=== PATIENT | male | born 1965 | race Caucasian/White ===

== ENCOUNTER 2016-11-02 10:30 | Emergency (ER) | payer BC, MEDICAID ==
[2016-11-02 10:51] VITALS: BP 140/82
--- NOTE | 2016-11-02 11:40 | EDM.PDOC ---
ED HPI Trauma - General Chief Complaint: Lower Extremity Injury/Pain Stated Complaint: KNEE BUCKELED WHILE WALKING DOWN STAIRS Time Seen by Provider: 11/02/16 11:20 Source: Reports: Patient, Old records, RN notes reviewed History Limitations: Reports: No limitations - History of Present Illness INITIAL COMMENTS - FREE TEXT/NARRATIVE: 51-year-old gentleman presents emergency department today complaint of left knee pain, he was evaluated by his primary care provider a couple of days ago for a similar complaint was set up for evaluation by orthopedics in 6 days unfortunately last night his knee gave out on him again causing an increase in pain he is using crutches but his main issue today is pain control Allergies/ADRs: Allergies ketorolac tromethamine [From Toradol] Allergy (Severe, Verified 02/03/14 11:17) Swelling codeine Allergy (Intermediate, Verified 02/03/14 11:16) Hives Home Medications: Ambulatory Orders Omeprazole 20 mg PO DAILY 02/03/14 [Confirmed 11/02/16] ALPRAZolam [Xanax] 1 mg PO BID PRN 11/02/16 [Confirmed 11/02/16] Prazosin [Minpress] 1 mg PO BEDTIME 11/02/16 [Confirmed 11/02/16] QUEtiapine [SEROquel] 25 - 50 mg PO BID PRN 11/02/16 [Confirmed 11/02/16] QUEtiapine [SEROquel] 100 mg PO BEDTIME 11/02/16 [Confirmed 11/02/16] Sertraline HCl 100 mg PO DAILY 11/02/16 [Confirmed 11/02/16] Past Medical History - Past Surgical History Musculoskeletal Surgical History: Reports: Arthroscopic knee Social & Family History - Tobacco Use Smoking Status *Q: Current Every Day Smoker Years of Tobacco use: 40 Packs/Tins Daily: 1 Second Hand Smoke Exposure: Yes - Caffeine Use Caffeine Use: Reports: Coffee - Alcohol Use Days Per Week of Alcohol Use: 0 - Recreational Drug Use Recreational Drug Use: Yes Drug Use in Last 12 Months: Yes Recreational Drug Type: Reports: Marijuana/Hashish Recreational Drug Use Frequency: Weekly Recreational Drug Last Use: 11/02/16 Review of Systems - Review of Systems Review Of Systems: See Below Constitutional: Reports: no symptoms Musculoskeletal: Reports: joint pain (Left knee) Neurological: Reports: No Symptoms Trauma Exam - Physical Exam Exam: See Below Text/Narrative:: Examination left knee I don't appreciate any edema there is no erythema he is exquisitely tender along the medial joint line will not allow me to perform a fullness or varus maneuver does not tolerate any movement of the patella no Monty's or anterior drawer test was done Exam Limited By: No limitations General Appearance: Reports: alert, WD/WN, no apparent distress Course - Vital Signs Last Recorded V/S: Last Vital Signs Temp 97.7 F 11/02/16 10:50 Pulse 84 11/02/16 10:50 Resp 16 11/02/16 10:50 BP 140/82 11/02/16 10:50 Pulse Ox 98 11/02/16 10:50 - Orders/Labs/Meds Orders: Active Orders 24 hr Category Date Time Status DME for Discharge [COMM] Per Unit Routine Oth 11/02/16 11:33 Ordered Departure - Departure Time of Disposition: 11:38 Disposition: Home, Self-Care 01 Condition: good Clinical Impression: Left knee pain Qualifiers: Chronicity: acute Qualified Code(s): M25.562 - Pain in left knee Forms: ED Department Discharge Additional Instructions: Use Percocet as needed for pain control please keep your followup appointment with orthopedics next week, call or return to the emergency department with worsening of symptoms - My Orders Last 24 Hours: My Active Orders 11/02/16 11:33 DME for Discharge [COMM] Per Unit Routine - Assessment/Plan Last 24 Hours: My Active Orders 11/02/16 11:33 DME for Discharge [COMM] Per Unit Routine Plan: Assessment Acuity = acute Site and laterality = left knee pain complicated patient with known history of surgical intervention to left knee with anterior cruciate ligament repair Etiology = secondary to twisting injury Manifestations = none Location of injury = home Lab values = none Plan Granted prescription for 20 Percocets, he is set up for orthopedics on the of this month, placed in a knee immobilizer he is already nonweightbearing with crutches Patient was in agreement with the plan all questions were answered, they were instructed to return to the emergency department or call for worsening symptoms. This note was dictated using [employer] voice recognition software please call with any questions.
== END 2016-11-02 11:45 | disposition home or self-care (01) ==
LOC: JP.ED 10:30
DX: M25.562 Pain in left knee (principal); F17.210 Nicotine dependence, cigarettes, uncomplicated; Z79.899 Other long term (current) drug therapy; Z88.5 Allergy status to narcotic agent
CPT/HCPCS: 99283

== ENCOUNTER 2017-02-03 12:33 | Emergency (ER) | payer MEDICAID ==
[2017-02-03 12:47] VITALS: BP 125/85
--- NOTE | 2017-02-03 13:01 | EDM.PDOC ---
ED HPI GENERAL MEDICAL PROBLEM - General Chief Complaint: ENT Problem Stated Complaint: BOTTOM LT TOOTH PAIN Time Seen by Provider: 02/03/17 12:43 Source of Information: Reports: Patient History Limitations: Reports: No Limitations - History of Present Illness INITIAL COMMENTS - FREE TEXT/NARRATIVE: History of present illness: [51-year-old male presenting with a toothache. He was at work side working and came in drink some ice cold water and now is having terrible unrelenting tooth pain. He has had no fevers. ] Review of systems: As per history of present illness and below otherwise all systems reviewed and negative. Past medical history: As per history of present illness and as reviewed below otherwise noncontributory. Surgical history: As per history of present illness and as reviewed below otherwise noncontributory. Social history: No reported history of drug or alcohol abuse. Family history: As per history of present illness and as reviewed below otherwise noncontributory. Physical exam: HEENT: Atraumatic, normocephalic, examination of his dentition reveals that the tooth #33 is decayed tooth space. He does have percussion tenderness and there is some swelling of the gums. Lungs: Clear to auscultation, Heart: S1S2, regular, negative for clicks, rubs, or JVD. Extremities: Atraumatic, negative for cords or calf pain. Neurovascular unremarkable. Neuro: Awake, alert, oriented. Exam nonfocal. Diagnostics: [] Therapeutics: [] Impression: [Toothache] Plan: [I'm providing him with pen VK 500 mg 1 by mouth 4 times a day for 7 days and [place] 5/325 one by mouth every 3-4 hours when necessary #20 no refills he will need to follow-up with the dentist.] Definitive disposition and diagnosis as appropriate pending reevaluation and review of above. - Related Data Allergies Allergy/AdvReac Type Severity Reaction Status Date / Time ketorolac tromethamine Allergy Severe Swelling Verified 02/03/14 11:17 [From Toradol] codeine Allergy Intermediate Hives Verified 02/03/14 11:16 Home Meds: Home Meds Omeprazole 20 mg PO DAILY 02/03/14 [History] ALPRAZolam [Xanax] 1 mg PO BID PRN 11/02/16 [History] Prazosin [Minpress] 1 mg PO BEDTIME 11/02/16 [History] QUEtiapine [SEROquel] 25 - 50 mg PO BID PRN 11/02/16 [History] QUEtiapine [SEROquel] 100 mg PO BEDTIME 11/02/16 [History] Sertraline HCl 100 mg PO DAILY 11/02/16 [History] Past Medical History - Past Surgical History Musculoskeletal Surgical History: Reports: Arthroscopic Knee Social & Family History - Tobacco Use Smoking Status *Q: Current Every Day Smoker Years of Tobacco use: 40 Packs/Tins Daily: 1 Second Hand Smoke Exposure: Yes - Caffeine Use Caffeine Use: Reports: Coffee - Alcohol Use Days Per Week of Alcohol Use: 0 - Recreational Drug Use Recreational Drug Use: Yes Drug Use in Last 12 Months: Yes Recreational Drug Type: Reports: Marijuana/Hashish Recreational Drug Use Frequency: Weekly Recreational Drug Last Use: 11/02/16 ED ROS ENT - Review of Systems Review Of Systems: ROS reveals no pertinent complaints other than HPI. ED EXAM, ENT - Physical Exam Exam: See Below Course - Vital Signs Last Recorded V/S: Last Vital Signs Temp 37.2 C 02/03/17 12:46 Pulse 121 H 02/03/17 12:46 Resp 14 02/03/17 12:46 BP 125/85 02/03/17 12:46 Pulse Ox 97 02/03/17 12:46 Departure - Departure Time of Disposition: 13:00 Disposition: Home, Self-Care 01 Condition: Good Clinical Impression: Toothache, Tooth abscess - Discharge Information Forms: ED Department Discharge Additional Instructions: Please follow-up with the dentist as soon as possible
== END 2017-02-03 13:14 | disposition home or self-care (01) ==
LOC: JP.ED 12:33
DX: K04.7 Periapical abscess without sinus (principal); K08.89 Other specified disorders of teeth and supporting structures; F17.210 Nicotine dependence, cigarettes, uncomplicated; Z79.899 Other long term (current) drug therapy; Z88.5 Allergy status to narcotic agent
CPT/HCPCS: 99283

== ENCOUNTER 2017-05-11 18:37 | Emergency (ER) | payer MEDICAID ==
[2017-05-11 19:34] VITALS: BP 132/66
[2017-05-11] MEDS ORDERED: HYDROmorphone 1 MG/ML Syringe IM ONE (19:59)
[2017-05-11] MEDS ORDERED: LORazepam 2 MG/ML MDV IM ONE (20:00)
--- NOTE | 2017-05-11 20:03 | EDM.PDOC ---
ED HPI GENERAL MEDICAL PROBLEM - General Chief Complaint: Upper Extremity Injury/Pain Stated Complaint: WASHER FELL ON THUMB Time Seen by Provider: 05/11/17 19:51 Source of Information: Reports: Patient, RN Notes Reviewed History Limitations: Reports: No Limitations - History of Present Illness INITIAL COMMENTS - FREE TEXT/NARRATIVE: 51-year-old gentleman presents emergency department today complaint of left thumb pain, he injured himself when a washer pinched the thumb he has no break in the skin he is in a moderate amount pain and he has difficulty moving his thumb secondary to pain Right Head Pain Score (Numeric/FACES): 10 - Related Data Allergies Allergy/AdvReac Type Severity Reaction Status Date / Time ketorolac tromethamine Allergy Severe Swelling Verified 02/03/17 13:10 [From Toradol] codeine Allergy Intermediate Hives Verified 02/03/17 13:10 Sulfa (Sulfonamide Allergy Swelling Verified 05/11/17 19:27 Antibiotics) tramadol Allergy Swelling Verified 05/11/17 19:28 Home Meds: Home Meds Omeprazole 20 mg PO DAILY 02/03/14 [History] ALPRAZolam [Xanax] 1 mg PO BID PRN 11/02/16 [History] Prazosin [Minpress] 1 mg PO BEDTIME 11/02/16 [History] QUEtiapine [SEROquel] 25 - 50 mg PO BID PRN 11/02/16 [History] QUEtiapine [SEROquel] 100 mg PO BEDTIME 11/02/16 [History] Sertraline HCl 100 mg PO DAILY 11/02/16 [History] Past Medical History Psychiatric History: Reports: Anxiety - Past Surgical History Musculoskeletal Surgical History: Reports: Arthroscopic Knee Social & Family History - Tobacco Use Smoking Status *Q: Light Tobacco Smoker Years of Tobacco use: 34 Packs/Tins Daily: 0.5 Used Tobacco, but Quit: No Second Hand Smoke Exposure: Yes - Caffeine Use Caffeine Use: Reports: Coffee - Alcohol Use Days Per Week of Alcohol Use: 0 - Recreational Drug Use Recreational Drug Use: No Drug Use in Last 12 Months: Yes Recreational Drug Type: Reports: Marijuana/Hashish Recreational Drug Use Frequency: Weekly Recreational Drug Last Use: 11/02/16 Review of Systems - Review of Systems Review Of Systems: See Below Musculoskeletal: Reports: Other (Finger pain) ED EXAM, GENERAL - Physical Exam Exam: See Below Free Text/Narrative:: Examination of the left hand radial pulses 2+ I don't appreciate any deformity he does have some edema over the entire thumb limited range of motion secondary to pain he has full range of motion digits 2 through 4 full range of motion of the wrist Course - Vital Signs Last Recorded V/S: Last Vital Signs Temp 98.4 F 05/11/17 19:36 Pulse 100 05/11/17 19:36 Resp 16 05/11/17 19:36 BP 132/66 05/11/17 19:36 Pulse Ox 100 05/11/17 19:36 - Orders/Labs/Meds Orders: Active Orders 24 hr Category Date Time Status Fingers Thumb Lt FA [CR] Stat Exams 05/11/17 18:48 Taken Meds: Medications Discontinued Medications Generic Name Dose Route Start Last Admin Trade Name Micheleq PRN Reason Stop Dose Admin Hydromorphone HCl 1 mg 05/11/17 19:59 05/11/17 20:09 Dilaudid IM 05/11/17 20:00 1 mg ONETIME ONE Administration Lorazepam 1 mg 05/11/17 20:00 05/11/17 20:07 Ativan IM 05/11/17 20:01 1 mg ONETIME ONE Administration - Re-Assessments/Exams Free Text/Narrative Re-Assessment/Exam: 05/11/17 20:20 After pain medications and Ativan this shaking did resolve I was able to reexamine his left left thumb full range of motion all digits 2 he was able to move his thumb significantly better radial pulse is +2 sensation was intact 05/11/17 20:21 Departure - Departure Time of Disposition: 20:22 Disposition: Home, Self-Care 01 Condition: Good Clinical Impression: Injury, thumb Qualifiers: Encounter type: initial encounter Laterality: left Qualified Code(s): S69.92XA - Unspecified injury of left wrist, hand and finger(s), initial encounter - Discharge Information Referrals: Melina Valenzuela MD [Primary Care Provider] - Forms: ED Department Discharge Additional Instructions: Continue using the splint as needed for pain control, use use Percocet for breakthrough pain, Please followup with your primary care provider in 3-5 days if not better, please call return to the emergency department with worsening of symptoms. - My Orders Last 24 Hours: My Active Orders 05/11/17 18:48 Fingers Thumb Lt FA [CR] Stat - Assessment/Plan Last 24 Hours: My Active Orders 05/11/17 18:48 Fingers Thumb Lt FA [CR] Stat Plan: Assessment Acuity = acute Site and laterality = left thumb injury Etiology = secondary to trauma Manifestations = pain Location of injury = Home Lab values = thumb x-ray I did review films myself I cannot appreciate any acute process, the official read from radiology is pending Plan He did receive good relief combination Dilaudid and Ativan discharged home with 10 Percocet 5/325 one tab by mouth 3 times a day when necessary follow-up with primary care 3-5 days for reevaluation placed in a aluminum splint with [place] wrap Patient was in agreement with the plan all questions were answered, they were instructed to return to the emergency department or call for worsening symptoms. This note was dictated using [employer] voice recognition software please call with any questions.
--- NOTE | 2017-05-14 08:40 | CR ---
Fingers Thumb Lt FA HISTORY: pain, trauma FINDINGS: No acute fracture or dislocation is identified. Bony architecture and joint spaces are preserved. S oft tissues are unremarkable. IMPRESSION: No acute right thumb abnormality identified.
== END 2017-05-11 20:42 | disposition home or self-care (01) ==
LOC: JP.ED 18:37
DX: S69.91XA Unspecified injury of right wrist, hand and finger(s), initial encounter (principal); F17.210 Nicotine dependence, cigarettes, uncomplicated; W20.8XXA Other cause of strike by thrown, projected or falling object, initial encounter
CPT/HCPCS: 73140; 96372; 99283; J1170; J2060

== ENCOUNTER 2017-07-06 11:57 | Emergency (ER) | payer MEDICAID ==
[2017-07-06 12:17] VITALS: BP 155/93
[2017-07-06] MEDS ORDERED: Ketorolac 60 MG/2 ML SDV IM ONE (12:48)
[2017-07-06] MEDS ORDERED: Acetaminophen/oxyCODONE 325-5 MG Tab PO ONE (12:48)
--- NOTE | 2017-07-06 12:55 | EDM.PDOC ---
ED HPI GENERAL MEDICAL PROBLEM - General Chief Complaint: ENT Problem Stated Complaint: TOP RT TEETH PAIN Time Seen by Provider: 07/06/17 12:49 Source of Information: Reports: Patient, RN Notes Reviewed - History of Present Illness INITIAL COMMENTS - FREE TEXT/NARRATIVE: pt has very carrious teeth in general. Right now he is having severe pain in the rt post area--upper. He has some swelling. He does work at [employer] and hd to [employer] work today. Onset: Today, Other ( It got alot worse today. ) Duration: Day(s):, Getting Worse Location: Reports: Face Associated Symptoms: Reports: No Other Symptoms - Related Data Allergies Allergy/AdvReac Type Severity Reaction Status Date / Time ketorolac tromethamine Allergy Severe Swelling Verified 07/06/17 12:10 [From Toradol] codeine Allergy Intermediate Hives Verified 07/06/17 12:10 Sulfa (Sulfonamide Allergy Swelling Verified 07/06/17 12:10 Antibiotics) tramadol Allergy Swelling Verified 07/06/17 12:10 Home Meds: Home Meds Omeprazole 20 mg PO DAILY 02/03/14 [History] ALPRAZolam [Xanax] 1 mg PO BID PRN 11/02/16 [History] Prazosin [Minpress] 1 mg PO BEDTIME 11/02/16 [History] QUEtiapine [SEROquel] 25 - 50 mg PO BID PRN 11/02/16 [History] QUEtiapine [SEROquel] 100 mg PO BEDTIME 11/02/16 [History] Sertraline HCl 100 mg PO DAILY 11/02/16 [History] Past Medical History - Past Health History Medical/Surgical History: Denies Medical/Surgical History Psychiatric History: Reports: Anxiety - Past Surgical History Musculoskeletal Surgical History: Reports: Arthroscopic Knee Social & Family History - Tobacco Use Smoking Status *Q: Current Every Day Smoker Years of Tobacco use: 35 Packs/Tins Daily: 1 Used Tobacco, but Quit: No Second Hand Smoke Exposure: Yes - Caffeine Use Caffeine Use: Reports: Coffee - Alcohol Use Days Per Week of Alcohol Use: 0 - Recreational Drug Use Recreational Drug Use: No Drug Use in Last 12 Months: Yes Recreational Drug Type: Reports: Marijuana/Hashish Recreational Drug Use Frequency: Weekly Recreational Drug Last Use: 11/02/16 ED ROS ENT - Review of Systems Review Of Systems: See Below Constitutional: Reports: No Symptoms HEENT: Reports: Dental Pain, Other (pt has severe pain in the rt upper gum line. ) Cardiovascular: Reports: No Symptoms Endocrine: Reports: No Symptoms GI/Abdominal: Reports: No Symptoms : Reports: No Symptoms ED EXAM, ENT - Physical Exam Exam: See Below Text/Narrative:: Pt has severe pain in the rt upper gum line. He has an appt on Jul 17 to hve his teeth extracted. Exam Limited By: No Limitations General Appearance: Alert, Anxious, Severe Distress Ears: Normal TMs Nose: Normal Inspection Mouth/Throat: Other ( cARRIOUS TEETH WITH SWELLING OF THE GUMS. ) Head: Atraumatic Neck: Lymphadenopathy (R), Lymphadenopathy (L) Respiratory/Chest: No Respiratory Distress Cardiovascular: Regular Rate, Rhythm GI/Abdominal: Soft, Non-Tender Course - Vital Signs Last Recorded V/S: Last Vital Signs Temp 36.0 C 07/06/17 12:15 Pulse 101 H 07/06/17 12:15 Resp 16 07/06/17 12:15 BP 155/93 H 07/06/17 12:15 Pulse Ox 94 L 07/06/17 12:15 - Orders/Labs/Meds Meds: Medications Discontinued Medications Generic Name Dose Route Start Last Admin Trade Name Freq PRN Reason Stop Dose Admin Ketorolac Tromethamine 60 mg 07/06/17 12:48 Toradol IM 07/06/17 12:49 ONETIME ONE Oxycodone/Acetaminophen 1 tab 07/06/17 12:48 Percocet 325-5 Mg PO 07/06/17 12:49 ONETIME ONE - Re-Assessments/Exams Free Text/Narrative Re-Assessment/Exam: 07/06/17 12:54 PT WAS GIVEN TORODOL 60MG IM AND PERCOCET 11/3124 PO. Departure - Departure Time of Disposition: 12:55 Disposition: Home, Self-Care 01 Condition: Fair Clinical Impression: Dental infection - Discharge Information Instructions: Dental Abscess, [id number] Referrals: Melina Valenzuela MD [Primary Care Provider] - Forms: ED Department Discharge Care Plan Goals: KEEP APPT WITH [facility] FOR jul. aMOXICILLIN 500MG TID, MOTRIN 600MG QID ON A REGULAR BASIS, [place] 5/325 Q6H PRN FOR PAIN
== END 2017-07-06 13:12 | disposition home or self-care (01) ==
LOC: JP.ED 11:57
DX: K04.7 Periapical abscess without sinus (principal); F17.210 Nicotine dependence, cigarettes, uncomplicated; Z79.899 Other long term (current) drug therapy; Z88.2 Allergy status to sulfonamides; Z88.6 Allergy status to analgesic agent; Z88.5 Allergy status to narcotic agent
CPT/HCPCS: 99283; A9270

== ENCOUNTER 2017-10-23 15:59 | Emergency (ER) | payer MEDICAID ==
[2017-10-23 16:14] VITALS: BP 149/85
--- NOTE | 2017-10-23 17:07 | EDM.PDOC ---
ED HPI GENERAL MEDICAL PROBLEM - General Chief Complaint: Lower Extremity Injury/Pain Stated Complaint: R PAIN PAIN Time Seen by Provider: 10/23/17 16:25 Source of Information: Reports: Patient History Limitations: Reports: No Limitations - History of Present Illness INITIAL COMMENTS - FREE TEXT/NARRATIVE: 52-year-old male with right foot pain. He has an area on the lateral aspect of the foot under the MP joint of the fifth digit on the right side that is been worsening over the past 6 months. Today he was at work and it was so painful he could hardly stand it so came in to have it checked. No trauma, no erythema, no swelling. Onset: Gradual (Over 6 months) Location: Reports: Other (Right foot) Severity: Moderate Associated Symptoms: Reports: No Other Symptoms Right Feet Pain Score (Numeric/FACES): 3 - Related Data Allergies Allergy/AdvReac Type Severity Reaction Status Date / Time ketorolac tromethamine Allergy Severe Swelling Verified 07/06/17 12:10 [From Toradol] codeine Allergy Intermediate Hives Verified 07/06/17 12:10 Sulfa (Sulfonamide Allergy Swelling Verified 07/06/17 12:10 Antibiotics) tramadol Allergy Swelling Verified 07/06/17 12:10 Home Meds: Home Meds Omeprazole 20 mg PO DAILY 02/03/14 [History] Past Medical History - Past Health History Medical/Surgical History: Denies Medical/Surgical History Psychiatric History: Reports: Anxiety - Infectious Disease History Infectious Disease History: Reports: Chicken Pox - Past Surgical History Musculoskeletal Surgical History: Reports: Arthroscopic Knee Social & Family History - Tobacco Use Smoking Status *Q: Current Every Day Smoker Years of Tobacco use: 30 Packs/Tins Daily: 1 Used Tobacco, but Quit: No Second Hand Smoke Exposure: Yes - Caffeine Use Caffeine Use: Reports: Coffee, Soda, Tea - Alcohol Use Days Per Week of Alcohol Use: 0 - Recreational Drug Use Recreational Drug Use: No Drug Use in Last 12 Months: Yes Recreational Drug Type: Reports: Marijuana/Hashish Recreational Drug Use Frequency: Weekly Recreational Drug Last Use: 11/02/16 Review of Systems - Review of Systems Review Of Systems: See Below Constitutional: Denies: Fever Respiratory: Denies: Shortness of Breath Cardiovascular: Denies: Chest Pain Skin: Reports: Other (Callus formation over the painful area) ED EXAM, GENERAL - Physical Exam Exam: See Below Exam Limited By: No Limitations General Appearance: Alert, No Apparent Distress Respiratory/Chest: No Respiratory Distress Extremities: Other (Exam is otherwise limited to the lower right extremity. He has no edema, erythema of the foot, tenderness around the ankle. 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 I offered to shave this down to take some pressure off but he declined. We did do an x-ray of the foot which is normal. I recommended callous or corn donuts to take some pressure off and follow up with podiatry in the clinic next week when they are able as he will likely need some type of debridement of this area. Departure - Departure Time of Disposition: 17:16 Disposition: Home, Self-Care 01 Condition: Good Clinical Impression: [place] or callus - Discharge Information Instructions: Corns and Calluses Referrals: PCP,None [Primary Care Provider] - Forms: ED Department Discharge Care Plan Goals: Try to take pressure off of the lesion with corn donuts or pads that are available at the pharmacy without prescription. Recheck with Dr. Pichardo next week for specialty care. Call the clinic tomorrow to schedule an appointment next week. Clinic number is [phone]
--- NOTE | 2017-10-24 09:25 | CR ---
Foot 2V Rt INDICATION: painful, right MP area FINDINGS: Mild degenerative narrowing of the first MTP joint. Small plantar calcaneal spur. Right alex t otherwise negative.
== END 2017-10-23 17:17 | disposition home or self-care (01) ==
LOC: JP.ED 15:59
DX: L84 Corns and callosities (principal); F17.210 Nicotine dependence, cigarettes, uncomplicated; Z88.6 Allergy status to analgesic agent; Z88.5 Allergy status to narcotic agent; Z88.2 Allergy status to sulfonamides; Z79.899 Other long term (current) drug therapy
CPT/HCPCS: 73620-26-RT; 73620-RT; 99284

== ENCOUNTER 2018-01-17 08:18 | Emergency (ER) | payer MEDICAID ==
[2018-01-17 08:32] VITALS: BP 172/80
[2018-01-17] MEDS ORDERED: Acetaminophen/HYDROcodone 325-5 MG Tab PO ONE (08:47)
--- NOTE | 2018-01-17 09:13 | EDM.PDOC ---
ED HPI GENERAL MEDICAL PROBLEM - General Chief Complaint: Lower Extremity Injury/Pain Stated Complaint: BROKE A COUPLE TOES ON RT FOOT Time Seen by Provider: 01/17/18 08:46 Source of Information: Reports: Patient History Limitations: Reports: No Limitations - History of Present Illness INITIAL COMMENTS - FREE TEXT/NARRATIVE: Kicked the edge of a door last night. complains of pain in rt 2nd and 4th toes. Right Feet Pain Score (Numeric/FACES): 5 - Related Data Allergies Allergy/AdvReac Type Severity Reaction Status Date / Time ketorolac tromethamine Allergy Severe Swelling Verified 01/17/18 08:28 [From Toradol] codeine Allergy Intermediate Hives Verified 01/17/18 08:28 Sulfa (Sulfonamide Allergy Swelling Verified 01/17/18 08:28 Antibiotics) tramadol Allergy Swelling Verified 01/17/18 08:28 Home Meds: Home Meds Omeprazole 20 mg PO DAILY 02/03/14 [History] Past Medical History - Past Health History Medical/Surgical History: Denies Medical/Surgical History Gastrointestinal History: Reports: GERD Psychiatric History: Reports: Anxiety - Infectious Disease History Infectious Disease History: Reports: Chicken Pox - Past Surgical History GI Surgical History: Reports: None Musculoskeletal Surgical History: Reports: Arthroscopic Knee Social & Family History - Tobacco Use Smoking Status *Q: Current Every Day Smoker Years of Tobacco use: 40 Packs/Tins Daily: 1 - Caffeine Use Caffeine Use: Reports: Coffee, Soda, Tea - Recreational Drug Use Recreational Drug Use: No Review of Systems - Review of Systems Review Of Systems: ROS reveals no pertinent complaints other than HPI. ED EXAM, GENERAL - Physical Exam Exam: See Below Exam Limited By: No Limitations General Appearance: Alert, Mild Distress Extremities: Other (bruising distal half rt 2nd and 4th toes. Mild swelling. NVT intact) Course - Vital Signs Last Recorded V/S: Last Vital Signs Temp 36.6 C 01/17/18 08:27 Pulse 92 01/17/18 08:27 Resp 18 01/17/18 08:27 BP 172/80 H 01/17/18 08:27 Pulse Ox 98 01/17/18 08:27 - Orders/Labs/Meds Orders: Active Orders 24 hr Category Date Time Status Toes Multiple Rt [CR] Stat Exams 01/17/18 08:46 Taken Meds: Medications Discontinued Medications Generic Name Dose Route Start Last Admin Trade Name Jordan PRN Reason Stop Dose Admin Hydrocodone Bitart/Acetaminophen 1 tab 01/17/18 08:47 01/17/18 08:50 [place] 325-5 Mg PO 01/17/18 08:48 1 tab ONETIME ONE Administration - Radiology Interpretation Free Text/Narrative:: tiny chip off distal phalanx 4th toe. otherwise normal Departure - Departure Time of Disposition: 09:11 Disposition: Home, Self-Care 01 Condition: Fair Clinical Impression: Bruised toe - Discharge Information Referrals: PCP,None [Primary Care Provider] - Additional Instructions: Elevate apply ice. Weight bearing as tolerated. Wear comfortable shoes. Return work when feeling better. - My Orders Last 24 Hours: My Active Orders 01/17/18 08:46 Toes Multiple Rt [CR] Stat - Assessment/Plan Last 24 Hours: My Active Orders 01/17/18 08:46 Toes Multiple Rt [CR] Stat
--- NOTE | 2018-01-17 09:26 | CR ---
Toes Multiple Rt INDICATION: trauma COMPARISON: None FINDINGS: 3 views. No fracture, dislocation, or other acute bony abnormality. No joint space narr owing.
== END 2018-01-17 09:20 | disposition home or self-care (01) ==
LOC: JP.ED 08:18
DX: S90.121A Contusion of right lesser toe(s) without damage to nail, initial encounter (principal); F41.9 Anxiety disorder, unspecified; F17.210 Nicotine dependence, cigarettes, uncomplicated; K21.9 Gastro-esophageal reflux disease without esophagitis; Z88.5 Allergy status to narcotic agent; Z88.2 Allergy status to sulfonamides; Z88.8 Allergy status to other drugs, medicaments and biological substances; Z79.899 Other long term (current) drug therapy; W22.8XXA Striking against or struck by other objects, initial encounter
CPT/HCPCS: 73660; 99284; A9270

== ENCOUNTER 2023-11-29 16:00 | Emergency (ER) | payer MEDICAID, OTHER ==
[2023-11-29 18:09] VITALS: BP 193/96; PULSE 94
== END 2023-11-29 16:51 | disposition home or self-care (01) ==
LOC: JP.ED 16:00
DX: F11.13 Opioid abuse with withdrawal (principal); Z88.5 Allergy status to narcotic agent; Z88.2 Allergy status to sulfonamides; Z79.899 Other long term (current) drug therapy
CPT/HCPCS: 99283

== ENCOUNTER 2024-01-22 09:44 | Emergency (ER) | payer MEDICAID ==
[2024-01-22] MEDS ORDERED: Naloxone 0.4 MG/ML SDV IVPUSH PRN (10:29)
[2024-01-22 10:30] VITALS: BP 191/91; PULSE 86
[2024-01-22] MEDS: Cyclobenzaprine 10 MG Tab PO ONE (10:37)
[2024-01-22] MEDS: HYDROmorphone 0.5 MG/0.5 ML Syringe IM ONE (10:38)
[2024-01-22] MEDS: Acetaminophen 500 MG Tab PO ONE (11:23)
[2024-01-22 11:24] LABS: APPEARANCE,URINE CLEAR (CLEAR); BILIRUBIN,URINE NEGATIVE (NEGATIVE); COLOR,URINE YELLOW (YELLOW); GLUCOSE,URINE NEGATIVE (NEGATIVE); KETONES,URINE TRACE mg/dL (NEGATIVE); LEUKOCYTE ESTERASE,URINE NEGATIVE (NEGATIVE); NITRITE,URINE NEGATIVE (NEGATIVE); OCCULT BLOOD,URINE NEGATIVE (NEGATIVE); PROTEIN,URINE NEGATIVE (NEGATIVE)
[2024-01-22 11:30] LABS: AMPHETAMINES SCREEN, URINE NEGATIVE (NEGATIVE); BARBITURATE SCREEN,URINE NEGATIVE (NEGATIVE); BENZODIAZEPINES SCREEN,URINE NEGATIVE (NEGATIVE); METHADONE SCREEN, URINE NEGATIVE (NEGATIVE); METHAMPHETAMINES SCREEN, URINE NEGATIVE (NEGATIVE); OXYCODONE SCREEN,URINE NEGATIVE (NEGATIVE); PROPOXYPHENE SCREEN,URINE NEGATIVE (NEGATIVE); THC SCREEN,URINE 50 NG/ML PRESUMPTIVE POSITIVE (NEGATIVE)
[2024-01-22 11:34] LABS: AMORPHOUS SEDIMENT,URINE RARE; BACTERIA,URINE NOT SEEN; EPITHELIAL CELLS,URINE NOT SEEN; MUCUS,URINE NOT SEEN; RBC,URINE NOT SEEN (0-5); WBC,URINE NOT SEEN (0-5)
== END 2024-01-22 12:05 | disposition home or self-care (01) ==
LOC: JP.ED 09:44
DX: M62.830 Muscle spasm of back (principal); I10 Essential (primary) hypertension; K21.9 Gastro-esophageal reflux disease without esophagitis; E03.9 Hypothyroidism, unspecified; F17.210 Nicotine dependence, cigarettes, uncomplicated; Z88.5 Allergy status to narcotic agent; Z88.0 Allergy status to penicillin; Z88.2 Allergy status to sulfonamides; Z79.899 Other long term (current) drug therapy; Z79.890 Hormone replacement therapy
CPT/HCPCS: 80305; 81001; 96372; 99283; A9270; J1170

== ENCOUNTER 2025-03-03 15:02 | Emergency (ER) | payer SELFPAY ==
[2025-03-03 15:17] VITALS: BP 233/105; PULSE 75
== END 2025-03-03 15:40 | disposition left against medical advice (07) ==
LOC: JP.ED 15:02
DX: Z53.21 Procedure and treatment not carried out due to patient leaving prior to being seen by health care provider (principal)

== ENCOUNTER 2025-03-09 15:22 | Emergency (ER) | payer SELFPAY ==
[2025-03-09 16:47] VITALS: BP 169/77; PULSE 57
== END 2025-03-09 17:43 | disposition home or self-care (01) ==
LOC: JP.ED 15:22
DX: S46.912A Strain of unspecified muscle, fascia and tendon at shoulder and upper arm level, left arm, initial encounter (principal); I10 Essential (primary) hypertension; K21.9 Gastro-esophageal reflux disease without esophagitis; F17.200 Nicotine dependence, unspecified, uncomplicated; Z88.0 Allergy status to penicillin; Z88.2 Allergy status to sulfonamides; Z88.5 Allergy status to narcotic agent; Z88.8 Allergy status to other drugs, medicaments and biological substances; Z79.899 Other long term (current) drug therapy; W19.XXXA Unspecified fall, initial encounter; Y99.0 Civilian activity done for income or pay
CPT/HCPCS: 73030; 99283; A9270